=== PATIENT | male | born 1980 | race Caucasian/White ===

== ENCOUNTER 2021-10-29 15:58 | Emergency (ER) | payer OTHER ==
[2021-10-29 18:28] LABS: BASOPHIL 0.9 % (0-2); EOSINOPHIL 0.1 % (0-5); HCT 37.1 % (42.0-52.0); HGB 12.6 g/dl (13.2-18.0); MCV 91.2 fL (78.0-100.0); MONOCYTE 8.5 % (0-12); MPV 11.1 fL (6.0-9.5); NEUTROPHIL 73.1 % (41-80); NRBC 0; RBC 4.07 M/uL (4.70-6.00); RDW 16.8 % (11.5-14.0); WBC 6.9 K/uL (4.0-10.5)
[2021-10-29 18:40] LABS: INR 0.94 (0.9-1.2)
[2021-10-29 18:44] LABS: AMPHETAMINES NEGATIVE (NEGATIVE); BARBITURATES NEGATIVE (NEGATIVE); ECSTASY (MDMA) NEGATIVE (NEGATIVE); MARIJUANA (THC) NEGATIVE (NEGATIVE); METHADONE NEGATIVE (NEGATIVE); OPIATES NEGATIVE (NEGATIVE); OXYCODONE NEGATIVE (NEGATIVE)
[2021-10-29 18:45] LABS: ALBUMIN 3.9 g/dL (3.4-5.0); ALKALINE PHOSHATASE 91 U/L (46-116); ALT 47 U/L (16-63); AST 62 U/L (15-37); BILIRUBIN - TOTAL 2.7 mg/dL (0.2-1.0); BUN 6 mg/dL (7-18); BUN/CREAT RATIO (CALC) 9.1 RATIO; CHLORIDE 95 mmol/L (98-107); CO2 (BICARBONATE) 26 mmol/L (21-32); CREATININE 0.66 mg/dL (0.67-1.17); GLOBULIN (CALCULATION) 4.2 g/dL; GLUCOSE 71 mg/dL (74-106); LIPASE 85 U/L (73-393); POTASSIUM 3.5 mmol/L (3.5-5.1); TOTAL PROTEIN 8.1 g/dL (6.4-8.2)
[2021-10-29 18:46] LABS: BILIRUBIN 2+ mg/dL (NEGATIVE); BLOOD TRACE-INTACT Ery/uL (NEGATIVE); CLARITY CLEAR (CLEAR); GLUCOSE (U) NORMAL (NORMAL); LEUKOCYTES NEGATIVE Leu/uL (NEGATIVE); NITRITE NEGATIVE (NEGATIVE); PROTEIN 1+ mg/dL (NEGATIVE); SPECIFIC GRAVITY 1.025 (1.001-1.030)
[2021-10-29 18:54] LABS: COLOR AMBER (YELLOW)
[2021-10-29 18:55] LABS: MUCOUS MODERATE
[2021-10-29 19:11] LABS: PLT 65 K/uL (150-400)
== END 2021-10-29 21:10 | disposition home or self-care (01) ==
LOC: FER 15:58
PROVIDERS: Emergency Medicine
DX: F10.239 Alcohol dependence with withdrawal, unspecified (principal); E80.7 Disorder of bilirubin metabolism, unspecified; F17.210 Nicotine dependence, cigarettes, uncomplicated; Z20.822 Contact with and (suspected) exposure to COVID-19
CPT/HCPCS: 36415; 71045; 80053; 80305; 81001; 83690; 85025; 85610; 93005; G0480; J2060; J2405; J3411; J3475; J7030; U0002